=== PATIENT | male | born 1980 | race Caucasian/White ===

== ENCOUNTER 2022-03-04 20:51 | Emergency (ER) | payer OTHER ==
[2022-03-04] MEDS ORDERED: TETANUS/DIPHTHERIA/PERTUSSIS 0.5 ML SYRINGE IM ONE (21:15)
--- NOTE | 2022-03-04 22:52 | ED Physician Documentation ---
PD HPI LOWER EXT INJURY - Stated complaint Stated Complaint: LT FOOT PX - Chief complaint Chief Complaint: Laceration - History obtained from History obtained from: Patient - History of Present Illness PD HPI LOW EXT INJURY LOCATION: Left, Foot Type of injury: Puncture wound Where injury occurred: Home Timing - onset: Enter time (19:30), Today Timing - details: Abrupt onset Pain level now: 1 Recently seen: Not recently seen - Additional information Additional information: patient was doing yard work this evening when he stepped on an iron rake. One of the teeth of the rake punctured through his footwear and into his foot, causing laceration to sole of left foot. He does not know when lat tetanus shot was. The injury occurred at approximately 7:30 PM tonight Review of Systems Skin: reports: Laceration (s) Musculoskeletal: reports: Pain with weight bearing Neurologic: denies: Focal weakness, Numbness PD PAST MEDICAL HISTORY - Past Medical History Past Medical History: No - Present Medications Home Medications: Ambulatory Orders Medication Instructions Recorded Confirmed levoFLOXacin [Levofloxacin] 500 mg PO DAILY #7 tablet 03/04/22 - Allergies Allergies/Adverse Reactions: Allergies Allergy/AdvReac Type Severity Reaction Status Date / Time No Known Drug Allergies Allergy Verified 03/04/22 21:04 PD ED PE NORMAL - Vitals Vital signs reviewed: Yes - General General: Alert and oriented X 3, No acute distress, Well developed/nourished - Extremities Extremities: No tenderness to palpate, Normal ROM s pain - Neuro Neuro: No motor deficit, No sensory deficit PD ED PE EXPANDED - Extremities Feet visual: 1 - laceration (0.5 cm length puncture wound/laceration. no bony tenderness, no visible FB nor FB sensation) Results - Vitals Vitals: Oxygen O2 Source Room air PD MEDICAL DECISION MAKING - ED course Complexity details: considered differential, d/w patient ED course: puncture wound through footwear (crocs) into plantar surface of left foot. There is no bony tenderness, no active bleeding, no visualized FB and patient denies FB sensation. His chief concern is that the rake was laureen and he does not know when his last tetanus shot was. He is given tdap in ED. Additionally, he is given levaquin for wound prophylaxis (considering that it went through footwear) and e-prescribed levaquin. Consideration was given to repairing the wound, but I recommended against repair because of high risk of infection if repaired (closed) at this time , but also considering the short length of the laceration. Departure - Departure Disposition: 01 Home, Self Care Clinical Impression: Puncture wound Condition: Good Instructions: ED Wound Puncture Foot Prescriptions: levoFLOXacin [Levofloxacin] 500 mg PO DAILY #7 tablet Comments: A prescription for the antibiotic (levofloxacin) has been electronically submitted to [facility] in [place]. Follow up with your primary care provider in 4-5 days for recheck of the injury. Forms: Activity restrictions Discharge Date/Time: 03/04/22 23:33
[2022-03-04] MEDS ORDERED: levoFLOXacin 250 MG TABLET PO STA (23:11)
[2022-03-04 23:35] VITALS: BP 141/72
== END 2022-03-04 23:33 | disposition home or self-care (01) ==
LOC: ED 20:51
DX: S91.332A Puncture wound without foreign body, left foot, initial encounter (principal); W27.1XXA Contact with garden tool, initial encounter; Y93.H9 Activity, other involving exterior property and land maintenance, building and construction; Y92.007 Garden or yard of unspecified non-institutional (private) residence as the place of occurrence of the external cause; Z23 Encounter for immunization; Z71.85 Encounter for immunization safety counseling
CPT/HCPCS: 90471; 90715; 99283; A9270

== ENCOUNTER 2023-05-11 17:20 | Outpatient (CLI) | payer OTHER | END 2023-05-11 23:59 | disposition home or self-care (01) | LOC: LAB 17:20 | PROVIDERS: ATTEND Physician Assistant Medical | DX: L97.519 Non-pressure chronic ulcer of other part of right foot with unspecified severity (principal) | CPT/HCPCS: 87070; 87077; 87181; 87205 ==

== ENCOUNTER 2023-05-12 13:43 | Outpatient (CLI) | payer OTHER ==
[2023-05-12 17:43] LABS: BASOPHILS # (AUTO) 0.1 10^3/uL (0.0-0.1); BASOPHILS % (AUTO) 1.1 %; EOSINOPHILS # (AUTO) 0.2 10^3/uL (0.0-0.7); EOSINOPHILS % (AUTO) 2.7 %; HCT - HEMATOCRIT 42.9 % (42.0-52.0); HGB - HEMOGLOBIN 13.8 g/dL (14.0-18.0); LYMPHOCYTES % (AUTO) 26.9 %; MEAN CORPUSCULAR HEMOGLOBIN 30.9 pg (27.0-31.0); MEAN CORPUSCULAR HGB CONC 32.2 g/dL (32.0-36.0); MEAN PLATELET VOLUME 9.5 fL (7.4-11.4); MONOCYTES # (AUTO) 0.9 10^3/uL (0.0-1.0); MONOCYTES % (AUTO) 12.3 %; NEUTROPHILS # (AUTO) 4.2 10^3/uL (1.5-6.6); NEUTROPHILS % (AUTO) 56.7 %; PLT - PLATELET COUNT 274 10^3/uL (130-450); RED BLOOD COUNT 4.47 10^6/uL (4.70-6.10); RED CELL DISTRIBUTION WIDTH 12.7 % (12.0-15.0); WHITE BLOOD COUNT 7.4 x10^3/uL (4.8-10.8)
[2023-05-12 17:55] LABS: ALBUMIN 4.2 g/dL (3.2-5.5); ALBUMIN/GLOBULIN RATIO 1.2 (1.0-2.2); BILIRUBIN,TOTAL 0.5 mg/dL (0.2-1.0); CALCIUM 9.4 mg/dL (8.5-10.3); CREATININE 0.8 mg/dL (0.6-1.3); CRP - C-REACTIVE PROTEIN 1.3 mg/dL (<0.5); MAGNESIUM 1.8 mg/dL (1.7-2.3); POTASSIUM 4.2 mmol/L (3.5-4.5); TOTAL PROTEIN 7.8 g/dL (6.4-8.9); URIC ACID 7.5 mg/dL (4.4-7.6)
== END 2023-05-12 13:44 | disposition home or self-care (01) ==
LOC: LAB.N 13:43
PROVIDERS: ATTEND Physician Assistant Medical
DX: I10 Essential (primary) hypertension (principal); M10.9 Gout, unspecified; R00.8 Other abnormalities of heart beat
CPT/HCPCS: 36415; 80053; 83735; 84550; 85025; 85651; 86140

== ENCOUNTER 2023-05-13 13:31 | Outpatient (CLI) | payer OTHER ==
--- NOTE | 2023-05-13 22:08 | XRAY Report ---
PROCEDURE: Foot 3 View RT INDICATIONS: RT FT ULCER TECHNIQUE: 3 views of the foot were acquired. COMPARISON: None. FINDINGS: Bones: No fractures or dislocations. No suspicious bony lesions. Distal first metatarsal osteophy te. IP subluxation is present at the MTP joints of the second and third digits. Soft tissues: No suspicious soft tissue calcifications or masses. IMPRESSION: No erosions. Reviewed by: Analia Field MD on 05/13/2023 10:07 PM PDT Approved by: Analia Field MD on 05/13/2023 10:07 PM PDT Station ID: [id number]
== END 2023-05-13 13:32 | disposition home or self-care (01) ==
LOC: DI 13:31
PROVIDERS: ATTEND Physician Assistant Medical
DX: L97.519 Non-pressure chronic ulcer of other part of right foot with unspecified severity (principal)

== ENCOUNTER 2023-05-30 12:58 | Outpatient (CLI) | payer OTHER | END 2023-05-30 12:59 | disposition home or self-care (01) | LOC: DI 12:58 | PROVIDERS: ATTEND Physician Assistant Medical | DX: R00.8 Other abnormalities of heart beat (principal); I49.3 Ventricular premature depolarization; I51.7 Cardiomegaly | CPT/HCPCS: 93306 ==

== ENCOUNTER 2023-12-12 07:37 | Outpatient (CLI) | payer OTHER ==
[2023-12-12 07:58] LABS: BASOPHILS # (AUTO) 0.1 10^3/uL (0.0-0.1); BASOPHILS % (AUTO) 1.1 %; EOSINOPHILS # (AUTO) 0.3 10^3/uL (0.0-0.7); EOSINOPHILS % (AUTO) 3.1 %; HCT - HEMATOCRIT 43.9 % (42.0-52.0); HGB - HEMOGLOBIN 14.6 g/dL (14.0-18.0); LYMPHOCYTES # (AUTO) 2.1 10^3/uL (1.5-3.5); LYMPHOCYTES % (AUTO) 22.7 %; MEAN CORPUSCULAR HEMOGLOBIN 31.9 pg (27.0-31.0); MEAN CORPUSCULAR HGB CONC 33.3 g/dL (32.0-36.0); MEAN CORPUSCULAR VOLUME 95.9 fL (80.0-94.0); MEAN PLATELET VOLUME 9.1 fL (7.4-11.4); NEUTROPHILS # (AUTO) 5.6 10^3/uL (1.5-6.6); NEUTROPHILS % (AUTO) 61.4 %; PLT - PLATELET COUNT 222 10^3/uL (130-450); RED BLOOD COUNT 4.58 10^6/uL (4.70-6.10); RED CELL DISTRIBUTION WIDTH 12.1 % (12.0-15.0)
[2023-12-12 08:08] LABS: ALBUMIN 4.3 g/dL (3.2-5.5); ALBUMIN/GLOBULIN RATIO 1.2 (1.0-2.2); ALKALINE PHOSPHATASE 54 IU/L (42-121); ALT ALANINE AMINOTRANSFERASE 67 IU/L (10-60); AST ASPARTATE AMINOTRANSFERASE 59 IU/L (10-42); BILIRUBIN,TOTAL 0.5 mg/dL (0.2-1.0); BUN - BLOOD UREA NITROGEN 13 mg/dL (6-20); CALCIUM 9.6 mg/dL (8.5-10.3); CARBON DIOXIDE - CO2 30 mmol/L (21-32); CHLORIDE 98 mmol/L (101-111); CHOL/HDL RATIO 4.5 (<5.0); CHOLESTEROL 171 mg/dL; CREATININE 0.7 mg/dL (0.6-1.3); GFR - MDRD 123 (>89); GLUCOSE 124 mg/dL (74-104); HDL CHOLESTEROL 38 mg/dL; LDL CHOLESTEROL,CALCULATED 103 mg/dL; LDL/HDL RATIO 2.7 (<3.6); SODIUM 134 mmol/L (135-145); TOTAL PROTEIN 7.9 g/dL (6.4-8.9); TRIGLYCERIDES 151 mg/dL (48-352); VLDL CHOLESTEROL 30 mg/dL
[2023-12-12 08:17] LABS: THYROID STIMULATING HORMONE 2.52 uIU/mL (0.34-5.60)
== END 2023-12-12 07:38 | disposition home or self-care (01) ==
LOC: LAB 07:37
PROVIDERS: ATTEND Physician Assistant Medical
DX: Z00.00 Encounter for general adult medical examination without abnormal findings (principal)
CPT/HCPCS: 36415; 80053; 80061; 83721; 84443; 85025

== ENCOUNTER 2024-06-03 18:08 | Outpatient (CLI) | payer OTHER ==
--- NOTE | 2024-06-04 15:56 | Ultrasound Report ---
PROCEDURE: Duplex Ext Veins Bilateral INDICATIONS: Foot ulcer, blood thinners TECHNIQUE: Real-time imaging, as well as color and pulse Doppler interrogation, were performed of the deep veins of both legs from the inguinal ligament to the popliteal fossa. Attempted visualization of the calf veins was performed. COMPARISON: None LIMITATIONS: Evaluation is limited by patient body habitus. FINDINGS: The deep veins are normally compressible, and free of intraluminal thrombus. Color and pu lse Doppler demonstrate normal phasic intravascular flow. There is normal augmentation response to d istal compression maneuver. IMPRESSION: Study somewhat limited due to patient body habitus No deep venous thrombosis of the visualized lower extremities. Reviewed by: Jerrod Watkins MD on 06/04/2024 3:55 PM PDT Approved by: Jerrod Watkins MD on 06/04/2024 3:55 PM PDT Station ID: [id number]
--- NOTE | 2024-06-04 16:06 | Ultrasound Report ---
PROCEDURE: Arterial Duplex Lwr Ext BL with ankle-brachial indices INDICATIONS: R FOOT ULCER, hypertension, smoking TECHNIQUE: Color and pulse Doppler interrogation was performed of both lower extremity arterial systems, with im age documentation. Bilateral ankle brachial indices were also obtained COMPARISON: None FINDINGS: Right lower extremity: Triphasic waveforms are seen throughout except for the anterior tibial which shows monophasic, postob structive waveforms Common femoral artery: 98 cm/sec, Deep femoral artery: 51 cm/sec, Proximal superficial femoral artery: 72 cm/sec, . Mid superficial femoral artery: 102 cm/sec, Distal superficial femoral artery: 70 cm/sec, Popliteal artery: 66 cm/sec, . Posterior tibial artery: 146 cm/sec, Anterior tibial artery/dorsalis pedis: 51/27 cm/sec, . Martínez-scale imaging description: Scattered atherosclerotic plaque. Ankle-brachial indices: Right brachial: 154/80 Right ankle: 160/87 GUILLERMO right: 1.06 Left lower extremity: Triphasic waveforms are seen throughout Common femoral artery: 90 cm/sec, Deep femoral artery: 52 cm/sec, Proximal superficial femoral artery: 75 cm/sec, Mid superficial femoral artery: 89 cm/sec, Distal superficial femoral artery: 79 cm/sec, Popliteal artery: 42 cm/sec, Posterior tibial artery: 119 cm/sec, Anterior tibial artery/dorsalis pedis: 98/48 cm/sec, Martínez-scale imaging description: Scattered atherosclerotic plaque. Triphasic waveforms are seen throughout Ankle-brachial indices: Left brachial: 152/73 Left ankle: 150/89 GUILLERMO left: 0.98 IMPRESSION: 1. Postobstructive waveforms in the right anterior tibial artery/dorsalis pedis; 2. Otherwise no indication hemodynamically significant arterial stenosis 3. ABIs appear unremarkable bilaterally Reviewed by: Jerrod Watkins MD on 06/04/2024 4:05 PM PDT Approved by: Jerrod Watkins MD on 06/04/2024 4:05 PM PDT Station ID: [id number]
== END 2024-06-03 18:09 | disposition home or self-care (01) ==
LOC: DI 18:08
PROVIDERS: ATTEND Physician Assistant Medical
DX: L97.519 Non-pressure chronic ulcer of other part of right foot with unspecified severity (principal)
CPT/HCPCS: 93922; 93925; 93970